=== PATIENT | female | born 1935 | race Caucasian/White ===

== ENCOUNTER 2019-02-23 09:55 | Emergency (ER) | payer MEDICARE, MEDICAID ==
[~2019-02-23] VITALS: Ht 157.5 cm; Wt 90.0 kg
[~2019-02-23 09:55] MED LIST: CLON-512 PO; ESCI10TA PO; HYDR-3972 PO; MELO-100 PO; OMEP-50 PO; SYN0.088T PO
[2019-02-23 11:39] LABS: CLARITY,URINE CLEAR (Clear); COLOR,URINE YELLOW (Yellow); GLUCOSE, URINE NEGATIVE (Neg); KETONES,URINE NEGATIVE (Neg); LEUKOCYTE ESTERASE ,URINE NEGATIVE (Neg); NITRITES, URINE NEGATIVE (Neg); OCCULT BLOOD,URINE MODERATE (Neg); PH,URINE 5.5 (4.8-8.0); PROTEIN,URINE NEGATIVE (Neg); UROBILINOGEN,URINE 0.2 E.U/dL (0.2-1.0)
[2019-02-23 11:44] LABS: UA COLLECTION TYPE CLN CATCH MIDSTREAM
[2019-02-23 11:45] LABS: BACTERIA,URINE NONE SEEN /HPF (Neg); MUCUS STRANDS FEW /LPF (Neg); RBC,URINE 0-2 /HPF (0-2); SQUAMOUS EPITHELIAL CELL,UR NONE SEEN /LPF (FEW); STARCH,URINE FEW /HPF (NEGATIVE); WBC,URINE NONE SEEN /HPF (0-4)
[2019-02-23 11:54] LABS: BASOPHILS # (AUTO) 0.1 X10'3 (0-0.2); BASOPHILS % (AUTO) 1.1 % (0-1); EOSINOPHILS # (AUTO) 0.2 X10'3 (0-0.9); EOSINOPHILS % (AUTO) 4.2 % (0-6); LYMPHOCYTES # (AUTO) 1.6 X10'3 (1.1-4.8); LYMPHOCYTES % (AUTO) 31.3 % (21-51); MEAN CORPUSCULAR HGB CONC 34.1 g/dL (33.0-36.5); MEAN CORPUSCULAR VOLUME 93.7 FL (78-98); MEAN PLATELET VOLUME 8.2 FL (7.4-10.4); MONOCYTES # (AUTO) 0.8 X10'3 (0-0.9); MONOCYTES % (AUTO) 15.2 % (2-12); NEUTROPHILS # (AUTO) 2.5 X10'3 (1.8-7.7); NEUTROPHILS % (AUTO) 48.2 % (42-75); PLATELET COUNT 208 X10'3 (140-440); RED BLOOD COUNT 4.06 X10'6 (4.20-5.60); RED CELL DISTRIBUTION WIDTH 14.3 % (11.5-14.5); WHITE BLOOD COUNT 5.2 X10'3 (4.5-11.0)
[2019-02-23 12:21] LABS: ALANINE AMINOTRANSFERASE 14 U/L (12-78); ALBUMIN 3.8 G/DL (3.4-5.0); ALKALINE PHOSPHATASE 102 IU/L (46-116); ANION GAP 6 (8-16); ASPARTATE AMINO TRANSFERASE 20 U/L (10-37); BILIRUBIN,TOTAL 0.3 MG/DL (0.1-1.0); BLOOD UREA NITROGEN 15 MG/DL (7-18); BUN/CREATININE RATIO 12.2 (6.6-38.0); CALCIUM 8.7 MG/DL (8.5-10.1); CHLORIDE 107 MMOL/L (99-107); CREATININE 1.23 MG/DL (0.40-0.90); GLUCOSE 92 MG/DL (70-104); POTASSIUM 4.4 MMOL/L (3.5-5.1); SODIUM 142 MMOL/L (135-145); TOTAL PROTEIN 7.5 G/DL (6.4-8.2); eGFR 42 ML/MIN
[2019-02-23] MEDS ORDERED: CEPH500C5 PO (12:45)
[2019-02-23 12:56] VITALS: BP 161/79
== END 2019-02-23 13:00 | disposition home or self-care (01) ==
LOC: ER 09:55
DX: N81.0 Urethrocele (principal); R19.7 Diarrhea, unspecified; Z88.8 Allergy status to other drugs, medicaments and biological substances; Z88.2 Allergy status to sulfonamides; Z79.2 Long term (current) use of antibiotics; Z79.899 Other long term (current) drug therapy; Z85.3 Personal history of malignant neoplasm of breast; Z90.49 Acquired absence of other specified parts of digestive tract
CPT/HCPCS: 80053; 81001; 85025; 99284

== ENCOUNTER 2021-06-08 10:25 | Emergency (ER) | payer MEDICARE, MEDICAID ==
[~2021-06-08] VITALS: Ht 157.5 cm; Wt 62.7 kg
[~2021-06-08 10:25] MED LIST changes: +BUTA1TAB54 PO; +CLON-368 PO; -CLON-512 PO; -ESCI10TA PO; +FEXO-310 PO; +LEVO100T9 PO; -MELO-100 PO; +MELO-102 PO; -OMEP-50 PO; +SERT-434 PO; -SYN0.088T PO
[2021-06-08 11:58] LABS: CLARITY,URINE CLEAR (Clear); COLOR,URINE YELLOW (Yellow); GLUCOSE, URINE NEGATIVE (Neg); KETONES,URINE NEGATIVE (Neg); LEUKOCYTE ESTERASE ,URINE NEGATIVE (Neg); NITRITES, URINE NEGATIVE (Neg); OCCULT BLOOD,URINE NEGATIVE (Neg); PH,URINE 6.5 (4.8-8.0); PROTEIN,URINE NEGATIVE (Neg); UROBILINOGEN,URINE 0.2 E.U/dL (0.2-1.0)
[2021-06-08] MEDS ORDERED: HYDROcodone/acetaminophen 5mg/325mg tablet PO ONE (12:05)
[2021-06-08 12:12] LABS: UA COLLECTION TYPE OTHER
[2021-06-08 13:12] VITALS: BP 161/65
--- NOTE | 2021-06-08 13:16 | NUR ---
MARI HERNANDEZ PHONE NUMBER [phone]
== END 2021-06-08 13:17 | disposition home or self-care (01) ==
LOC: ER 10:25
DX: R07.89 Other chest pain (principal); R42 Dizziness and giddiness; J43.9 Emphysema, unspecified; E03.9 Hypothyroidism, unspecified; F17.200 Nicotine dependence, unspecified, uncomplicated; Z86.711 Personal history of pulmonary embolism; Z85.3 Personal history of malignant neoplasm of breast; Z90.49 Acquired absence of other specified parts of digestive tract; Z88.2 Allergy status to sulfonamides; Z88.5 Allergy status to narcotic agent; Z88.8 Allergy status to other drugs, medicaments and biological substances; Z79.899 Other long term (current) drug therapy; W19.XXXA Unspecified fall, initial encounter; Y93.89 Activity, other specified; Y92.89 Other specified places as the place of occurrence of the external cause; Y99.8 Other external cause status
CPT/HCPCS: 71101; 81003; 99284

== ENCOUNTER 2021-06-21 11:06 | Inpatient (IN) | payer MEDICARE, MEDICAID ==
[~2021-06-21] VITALS: Ht 157.5 cm; Wt 61.4 kg
[2021-06-21 12:32] LABS: BASOPHILS # (AUTO) 0.1 X10'3 (0-0.2); BASOPHILS % (AUTO) 1.6 % (0-1); EOSINOPHILS # (AUTO) 0.4 X10'3 (0-0.9); EOSINOPHILS % (AUTO) 6.5 % (0-6); HEMATOCRIT 37.5 % (35.0-45.0); HEMOGLOBIN 12.3 g/dl (12.0-16.0); LYMPHOCYTES # (AUTO) 1.6 X10'3 (1.1-4.8); LYMPHOCYTES % (AUTO) 25.8 % (21-51); MEAN CORPUSCULAR HEMOGLOBIN 30.5 PG (27.0-31.0); MEAN CORPUSCULAR HGB CONC 32.9 g/dL (33.0-36.5); MEAN CORPUSCULAR VOLUME 92.7 FL (78-98); MEAN PLATELET VOLUME 7.7 FL (7.4-10.4); MONOCYTES # (AUTO) 0.8 X10'3 (0-0.9); MONOCYTES % (AUTO) 13.5 % (2-12); NEUTROPHILS # (AUTO) 3.3 X10'3 (1.8-7.7); NEUTROPHILS % (AUTO) 52.6 % (42-75); PLATELET COUNT 277 X10'3 (140-440); RED BLOOD COUNT 4.05 X10'6 (4.20-5.60); RED CELL DISTRIBUTION WIDTH 15.3 % (11.5-14.5); WHITE BLOOD COUNT 6.3 X10'3 (4.5-11.0)
[2021-06-21 12:44] LABS: ALANINE AMINOTRANSFERASE 6 U/L (12-78); ALBUMIN 3.7 G/DL (3.4-5.0); ALBUMIN/GLOBULIN RATIO 0.9 (1.1-1.5); ALKALINE PHOSPHATASE 116 IU/L (46-116); ANION GAP 7 (8-16); ASPARTATE AMINO TRANSFERASE 19 U/L (10-37); BILIRUBIN,TOTAL 0.5 MG/DL (0.1-1.0); BLOOD UREA NITROGEN 18 MG/DL (7-18); BUN/CREATININE RATIO 14.9 (6.6-38.0); CALCIUM 8.6 MG/DL (8.5-10.1); CHLORIDE 104 MMOL/L (99-107); CREATININE 1.21 MG/DL (0.40-0.90); GLUCOSE 92 MG/DL (70-104); POTASSIUM 4.2 MMOL/L (3.5-5.1); SODIUM 137 MMOL/L (135-145); TOTAL PROTEIN 7.8 G/DL (6.4-8.2); eGFR 42 ML/MIN
[2021-06-21] MEDS ORDERED: normal saline 1000ML IV soln IVB ONE (13:00)
[2021-06-21 13:27] LABS: CLARITY,URINE CLEAR (Clear); COLOR,URINE YELLOW (Yellow); GLUCOSE, URINE NEGATIVE (Neg); KETONES,URINE NEGATIVE (Neg); LEUKOCYTE ESTERASE ,URINE NEGATIVE (Neg); NITRITES, URINE NEGATIVE (Neg); OCCULT BLOOD,URINE TRACE-INTACT (Neg); PROTEIN,URINE NEGATIVE (Neg); UROBILINOGEN,URINE 0.2 E.U/dL (0.2-1.0)
[2021-06-21 13:31] LABS: UA COLLECTION TYPE NON-SPECIFIED
[2021-06-21 13:35] LABS: BACTERIA,URINE NONE SEEN /HPF (Neg); MUCUS STRANDS NONE SEEN /LPF (Neg); RBC,URINE NONE SEEN /HPF (0-2); SQUAMOUS EPITHELIAL CELL,UR FEW /LPF (FEW); WBC,URINE 0-4 /HPF (0-4)
--- NOTE | 2021-06-21 14:17 | NUR ---
Renea patel in [facility] - 06/21/21 at 1418 by MARZENA Patient given water and helped to sitting position.
[2021-06-21] MEDS ORDERED: LEVO75TA PO (15:14)
[2021-06-21] MEDS ORDERED: MULT-1074 PO (15:20)
[2021-06-21] MEDS ORDERED: CALC500T63 PO (15:20)
[2021-06-21] MEDS ORDERED: acetaminophen 325mg tablet PO PRN (15:45)
[2021-06-21] MEDS ORDERED: magnesium Cl slow-release 64mg tablet PO PRN (15:45)
[2021-06-21] MEDS ORDERED: ondansetron/PF 4mg/2ml inj IV PRN (15:45)
[2021-06-21] MEDS ORDERED: mag hydrox/Alum hydrox/simeth 30ml oral suspension PO PRN (15:45)
[2021-06-21] MEDS ORDERED: magnesium hydroxide 30ml (MOM) UD suspension PO PRN (15:45)
[2021-06-21] MEDS ORDERED: POTASSIUM BICARB 20meq eff tab 20 MEQ TABLET.EFF PO PRN ×2 (15:45)
[2021-06-21] MEDS ORDERED: magnesium 4gm in 100ml NS 100 ML IV PRN (15:45)
[2021-06-21] MEDS ORDERED: potassium Cl 40MEQ/1/2NS 520ml 520 ML IV PRN (15:45)
[2021-06-21] MEDS ORDERED: ondansetron 4mg rapidly disintigrating tab PO PRN (15:45)
[2021-06-21] MEDS ORDERED: acetaminophen 650mg rectal suppository RC PRN (15:45)
[2021-06-21] MEDS ORDERED: magnesium 2GM in 50ml NS 50 ML IV PRN (15:45)
[2021-06-21] MEDS: normal saline 1000ml 1,000 ML IV SCH (16:25)
[2021-06-21] MEDS: acetaminophen 325mg tablet PO PRN (16:29)
[2021-06-21 17:11] LABS: MAGNESIUM 1.7 MG/DL (1.5-2.4); POTASSIUM 4.1 MMOL/L (3.5-5.1)
--- NOTE | 2021-06-21 18:25 | NUR ---
ASSUMED CARE OF PT. PT SITTING UP ON BED WITH LUNCH TRAY ACROSS HER. HOSPITALIST IS TALKING TO HER AT BEDSIDE.
--- NOTE | 2021-06-21 19:01 | NUR ---
ATTEMPTED TO GIVE REPORT. RN UNABLE TO ACCEPT REPORT AT THIS TIME. SHE WILL CALL BACK IN 10 MINUTES.
[2021-06-21 19:30] VITALS: BP 124/70
[2021-06-21] MEDS: K and/or MAG REPLACEMENT MC SCH (20:00)
[2021-06-21] MEDS: docusate sod 100mg capsule PO SCH (20:00)
[2021-06-21 22:00] VITALS: BP 157/62
[2021-06-21] MEDS: clonazePAM 0.5mg tablet PO PRN (22:00)
[2021-06-22] MEDS: HYDROcodone/acetaminophen 5mg/325mg tablet PO PRN (00:42)
[2021-06-22] MEDS: normal saline 1000ml 1,000 ML IV SCH ×2 (00:53→21:37)
[2021-06-22 06:30] VITALS: BP 157/69
--- NOTE | 2021-06-22 06:31 | NUR ---
Received report from Agnes, RN
[2021-06-22 06:36] LABS: BASOPHILS # (AUTO) 0.1 X10'3 (0-0.2); BASOPHILS % (AUTO) 1.2 % (0-1); EOSINOPHILS # (AUTO) 0.5 X10'3 (0-0.9); EOSINOPHILS % (AUTO) 7.9 % (0-6); HEMATOCRIT 32.8 % (35.0-45.0); HEMOGLOBIN 10.9 g/dl (12.0-16.0); LYMPHOCYTES # (AUTO) 2.1 X10'3 (1.1-4.8); LYMPHOCYTES % (AUTO) 34.1 % (21-51); MEAN CORPUSCULAR HEMOGLOBIN 31.2 PG (27.0-31.0); MEAN CORPUSCULAR HGB CONC 33.3 g/dL (33.0-36.5); MEAN CORPUSCULAR VOLUME 93.7 FL (78-98); MEAN PLATELET VOLUME 7.8 FL (7.4-10.4); MONOCYTES # (AUTO) 1.1 X10'3 (0-0.9); MONOCYTES % (AUTO) 17.5 % (2-12); NEUTROPHILS # (AUTO) 2.5 X10'3 (1.8-7.7); NEUTROPHILS % (AUTO) 39.3 % (42-75); PLATELET COUNT 241 X10'3 (140-440); RED CELL DISTRIBUTION WIDTH 14.9 % (11.5-14.5); WHITE BLOOD COUNT 6.3 X10'3 (4.5-11.0)
[2021-06-22 07:07] LABS: ALANINE AMINOTRANSFERASE 8 U/L (12-78); ALBUMIN 3.1 G/DL (3.4-5.0); ALBUMIN/GLOBULIN RATIO 0.9 (1.1-1.5); ALKALINE PHOSPHATASE 92 IU/L (46-116); ANION GAP 7 (8-16); ASPARTATE AMINO TRANSFERASE 14 U/L (10-37); BILIRUBIN,TOTAL 0.4 MG/DL (0.1-1.0); BLOOD UREA NITROGEN 16 MG/DL (7-18); BUN/CREATININE RATIO 14.7 (6.6-38.0); CALCIUM 8.3 MG/DL (8.5-10.1); CHLORIDE 108 MMOL/L (99-107); CREATININE 1.09 MG/DL (0.40-0.90); GLUCOSE 88 MG/DL (70-104); MAGNESIUM 1.8 MG/DL (1.5-2.4); POTASSIUM 3.8 MMOL/L (3.5-5.1); SODIUM 139 MMOL/L (135-145); TOTAL CARBON DIOXIDE 23.8 MMOL/L (24-32); TOTAL PROTEIN 6.6 G/DL (6.4-8.2); eGFR 48 ML/MIN
[2021-06-22] MEDS: K and/or MAG REPLACEMENT MC SCH ×2 (08:00→19:47)
[2021-06-22] MEDS: docusate sod 100mg capsule PO SCH ×2 (08:23→19:54)
[2021-06-22] MEDS: calcium carbonate 500mg tablet PO SCH (08:23)
[2021-06-22] MEDS: levoTHYROXINE 75mcg tablet PO SCH (08:24)
[2021-06-22] MEDS: sertraline 50mg tablet PO SCH (08:24)
[2021-06-22] MEDS: enoxaparin 30mg/0.3ml syringe SUBCUT SCH (08:24)
[2021-06-22] MEDS ORDERED: amLODIPine 5mg tablet PO ONE (08:40)
[2021-06-22 09:00] LABS: TOTAL CELLS COUNTED 100
--- NOTE | 2021-06-22 09:00 | NUR ---
Malnutrition consult: Pt admitted w/ BLE weakness w/ hx of recent falls per EMR. Pt reports 2-13lb wt loss per MST. Current wt not scaled though consistent w/ wts from previous admits. Pt appears appropriate for age, no signs of muscle or fat wasting. Pt states that she was not eating too great at her previous facility because the food was not good, though she likes the food here and was able to eat breakfast this morning. Noted w/ BLE 1+ edema. At this time, pt does not meet minimum criteria for malnutrition. Addendum: 06/22/21 at [address] Amended: Links added.
[2021-06-22 09:01] LABS: PLATELET ESTIMATE NORMAL
[2021-06-22 09:02] LABS: BURR CELLS FEW; ELLIPTOCYTES FEW
[2021-06-22 10:08] VITALS: BP 152/64
[2021-06-22] MEDS: clonazePAM 0.5mg tablet PO PRN ×2 (10:30→23:25)
--- NOTE | 2021-06-22 10:56 | NUR ---
patient to MRI
--- NOTE | 2021-06-22 13:27 | NUR ---
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 judit [id number]
[2021-06-22] MEDS: DEXAMETHASONE 6 MG TABLET PO SCH (16:14)
[2021-06-22] MEDS ORDERED: iohexol 300mg/ml 100ml inj. ONE (16:59)
--- NOTE | 2021-06-22 17:38 | NUR ---
PAGER ID: [phone] MESSAGE: [id number], Lily systolic blood pressure is 181, no PRNs. Thanks judit [id number]
[2021-06-22] MEDS ORDERED: hydrALAZINE 20mg/ml inj. IV PRN (17:40)
--- NOTE | 2021-06-22 17:58 | NUR ---
medicated patient with hydralazine 10mg iv for systolic blood pressure of 181.
[2021-06-22 18:00] VITALS: BP 181/79
--- NOTE | 2021-06-22 18:13 | NUR ---
Gave report to NERISSA Foss
--- NOTE | 2021-06-22 18:37 | NUR ---
Patient in room [facility]TH[facility] 4012. I have received report from Kaylee MULTANI and had the opportunity to ask questions and assume patient care.
[2021-06-22 19:10] VITALS: BP 144/84
[2021-06-22] MEDS: HYDROcodone/acetaminophen 10/325mg tab PO PRN (19:54)
[2021-06-22 22:00] VITALS: BP 146/69
[2021-06-23 02:00] VITALS: BP 139/69
--- NOTE | 2021-06-23 06:09 | NUR ---
Problems reprioritized. Patient report given, questions answered & plan of care reviewed with Kaylee MULTANI.
[2021-06-23 06:10] LABS: BASOPHILS % (AUTO) 0.5 % (0-1); EOSINOPHILS % (AUTO) 0 % (0-6); HEMATOCRIT 34.9 % (35.0-45.0); HEMOGLOBIN 11.4 g/dl (12.0-16.0); LYMPHOCYTES # (AUTO) 0.8 X10'3 (1.1-4.8); LYMPHOCYTES % (AUTO) 16.4 % (21-51); MEAN CORPUSCULAR HEMOGLOBIN 30.3 PG (27.0-31.0); MEAN CORPUSCULAR HGB CONC 32.8 g/dL (33.0-36.5); MEAN CORPUSCULAR VOLUME 92.4 FL (78-98); MEAN PLATELET VOLUME 7.6 FL (7.4-10.4); MONOCYTES # (AUTO) 0.6 X10'3 (0-0.9); MONOCYTES % (AUTO) 10.9 % (2-12); NEUTROPHILS # (AUTO) 3.7 X10'3 (1.8-7.7); NEUTROPHILS % (AUTO) 72.2 % (42-75); PLATELET COUNT 259 X10'3 (140-440); RED BLOOD COUNT 3.77 X10'6 (4.20-5.60); RED CELL DISTRIBUTION WIDTH 15.1 % (11.5-14.5); WHITE BLOOD COUNT 5.2 X10'3 (4.5-11.0)
[2021-06-23 06:16] VITALS: BP_SYST 128; BP_SYST 146; BP_DIAS 62; BP_DIAS 74
[2021-06-23 06:22] LABS: ALANINE AMINOTRANSFERASE 6 U/L (12-78); ALBUMIN 3.2 G/DL (3.4-5.0); ALBUMIN/GLOBULIN RATIO 0.8 (1.1-1.5); ALKALINE PHOSPHATASE 104 IU/L (46-116); ANION GAP 8 (8-16); ASPARTATE AMINO TRANSFERASE 14 U/L (10-37); BILIRUBIN,TOTAL 0.4 MG/DL (0.1-1.0); BLOOD UREA NITROGEN 18 MG/DL (7-18); BUN/CREATININE RATIO 18.6 (6.6-38.0); CALCIUM 8.5 MG/DL (8.5-10.1); CHLORIDE 107 MMOL/L (99-107); CREATININE 0.97 MG/DL (0.40-0.90); GLUCOSE 119 MG/DL (70-104); MAGNESIUM 1.5 MG/DL (1.5-2.4); SODIUM 139 MMOL/L (135-145); TOTAL CARBON DIOXIDE 23.8 MMOL/L (24-32); TOTAL PROTEIN 7.1 G/DL (6.4-8.2); eGFR 54 ML/MIN
[2021-06-23] MEDS: normal saline 1000ml 1,000 ML IV SCH (07:37)
[2021-06-23] MEDS: docusate sod 100mg capsule PO SCH ×2 (08:00→20:12)
[2021-06-23] MEDS: K and/or MAG REPLACEMENT MC SCH ×2 (08:00→20:00)
[2021-06-23] MEDS ORDERED: amLODIPine 5mg tablet PO SCH (08:00)
[2021-06-23] MEDS: sertraline 50mg tablet PO SCH (08:16)
[2021-06-23] MEDS: DEXAMETHASONE 6 MG TABLET PO SCH (08:16)
[2021-06-23] MEDS: levoTHYROXINE 75mcg tablet PO SCH (08:16)
[2021-06-23] MEDS: amLODIPine 5mg tablet PO SCH (08:17)
[2021-06-23] MEDS: enoxaparin 30mg/0.3ml syringe SUBCUT SCH (08:17)
[2021-06-23] MEDS: calcium carbonate 500mg tablet PO SCH (08:17)
[2021-06-23] MEDS: lisinopril 20mg tablet PO SCH ×2 (08:17→09:33)
[2021-06-23 09:22] VITALS: BP 139/54
[2021-06-23] MEDS: acetaminophen 325mg tablet PO PRN ×2 (09:34→15:52)
[2021-06-23 14:50] VITALS: BP 138/56
[2021-06-23 18:00] VITALS: BP 143/59
--- NOTE | 2021-06-23 18:07 | NUR ---
report given to NERISSA pool
[2021-06-23] MEDS: psyllium seed 3.4 gm packet PO SCH (20:12)
[2021-06-23] MEDS: HYDROcodone/acetaminophen 10/325mg tab PO PRN (20:17)
[2021-06-23] MEDS: clonazePAM 0.5mg tablet PO PRN (21:25)
[2021-06-23 22:00] VITALS: BP 117/52
[2021-06-24 02:00] VITALS: BP 149/62
--- NOTE | 2021-06-24 04:00 | NUR ---
noted pt's wick didn't work. incont urine. changed entire bed, reset wick. encouraged pt to get out of bed to void instead of using the wick. antciapte discharge to rehab
[2021-06-24 06:00] VITALS: BP 122/51
--- NOTE | 2021-06-24 06:42 | NUR ---
Patient in room [facility]TH[facility] 4012. I have received report from NERISSA Mojica and had the opportunity to ask questions and assume patient care.
[2021-06-24 06:58] LABS: BASOPHILS % (AUTO) 0.4 % (0-1); EOSINOPHILS # (AUTO) 0.2 X10'3 (0-0.9); EOSINOPHILS % (AUTO) 1.7 % (0-6); HEMATOCRIT 32.6 % (35.0-45.0); HEMOGLOBIN 10.8 g/dl (12.0-16.0); LYMPHOCYTES # (AUTO) 2.3 X10'3 (1.1-4.8); LYMPHOCYTES % (AUTO) 25.7 % (21-51); MEAN CORPUSCULAR HGB CONC 33.1 g/dL (33.0-36.5); MEAN CORPUSCULAR VOLUME 93.5 FL (78-98); MEAN PLATELET VOLUME 7.7 FL (7.4-10.4); MONOCYTES # (AUTO) 1.7 X10'3 (0-0.9); MONOCYTES % (AUTO) 18.8 % (2-12); NEUTROPHILS # (AUTO) 4.7 X10'3 (1.8-7.7); NEUTROPHILS % (AUTO) 53.4 % (42-75); PLATELET COUNT 269 X10'3 (140-440); RED BLOOD COUNT 3.48 X10'6 (4.20-5.60); RED CELL DISTRIBUTION WIDTH 15.2 % (11.5-14.5); WHITE BLOOD COUNT 8.9 X10'3 (4.5-11.0)
[2021-06-24] MEDS: K and/or MAG REPLACEMENT MC SCH ×2 (08:00→18:41)
[2021-06-24 08:08] LABS: ALBUMIN 3.2 G/DL (3.4-5.0); ALBUMIN/GLOBULIN RATIO 0.9 (1.1-1.5); ALKALINE PHOSPHATASE 93 IU/L (46-116); ANION GAP 9 (8-16); ASPARTATE AMINO TRANSFERASE 13 U/L (10-37); BILIRUBIN,TOTAL 0.3 MG/DL (0.1-1.0); BLOOD UREA NITROGEN 21 MG/DL (7-18); BUN/CREATININE RATIO 17.1 (6.6-38.0); CALCIUM 8.2 MG/DL (8.5-10.1); CHLORIDE 108 MMOL/L (99-107); CREATININE 1.23 MG/DL (0.40-0.90); GLUCOSE 91 MG/DL (70-104); MAGNESIUM 1.8 MG/DL (1.5-2.4); POTASSIUM 3.7 MMOL/L (3.5-5.1); SODIUM 142 MMOL/L (135-145); TOTAL CARBON DIOXIDE 24.6 MMOL/L (24-32); TOTAL PROTEIN 6.8 G/DL (6.4-8.2); eGFR 41 ML/MIN
[2021-06-24 08:11] LABS: ALANINE AMINOTRANSFERASE < 6 U/L (12-78)
[2021-06-24] MEDS: clonazePAM 0.5mg tablet PO PRN (09:02)
[2021-06-24] MEDS: lisinopril 20mg tablet PO SCH (09:03)
[2021-06-24] MEDS: levoTHYROXINE 75mcg tablet PO SCH (09:03)
[2021-06-24] MEDS: acetaminophen 325mg tablet PO PRN (09:03)
[2021-06-24] MEDS: calcium carbonate 500mg tablet PO SCH (09:04)
[2021-06-24] MEDS: amLODIPine 5mg tablet PO SCH (09:04)
[2021-06-24] MEDS: sertraline 50mg tablet PO SCH (09:04)
[2021-06-24] MEDS: DEXAMETHASONE 6 MG TABLET PO SCH (09:05)
[2021-06-24] MEDS: docusate sod 100mg capsule PO SCH ×2 (09:05→19:46)
[2021-06-24 10:00] VITALS: BP 116/50
[2021-06-24 14:00] VITALS: BP 116/53
--- NOTE | 2021-06-24 14:01 | NUR ---
PRESSURE ULCER EDUCATION: DEFINITION: A pressure ulcer is an area of skin that breaks down when you stay in one position too long. The constant pressure against the skin reduces the blood flow to that area and the affected tissue dies. CAUSES: "Being bedridden or in a wheelchair "Fragile skin "Having a chronic condition, such as diabetes or vascular disease "Inability to move certain parts of your body without assistance "Older age "Incontinence of urine or stool SYMPTOMS: "A reddened area that DOES NOT turn white when pressed on - this can be the beginning of a pressure ulcer "A blister, deep sore or a crater - these can be advanced pressure ulcers FIRST AID: "Relieve the pressure on this area "Keep the area clean and dry "Call your primary doctor if you see any of the above symptoms "DO NOT massage the area "DO NOT use a donut shaped or ring shaped pillow- these actually interfere with the blood flow and cause complications PREVENTION: "Check for pressure ulcers everyday "Change position at least every two hours to relieve pressure "Use items that help relieve pressure- pillows, sheepskin, foam padding, and powders. "Keep skin clean and dry "Eat healthy well balanced meals "Exercise daily IF YOU SEE ANY OF THESE SYMPTOMS WHILE IN THE HOSPITAL - TELL YOUR NURSE IMMEDIATELY. IF YOU SEE ANY OF THESE SYMPTOMS WHILE AT HOME OR HAVE ANY QUESTIONS OR CONCERNS ABOUT PRESSURE ULCERS - CALL YOUR PRIMARY DOCTOR IMMEDIATELY. Addendum: 06/24/21 at 1402 by Charis Trejo LVN Amended: Links added.
[2021-06-24] MEDS: ibuprofen tablet 400 MG TABLET PO PRN (15:07)
[2021-06-24 18:00] VITALS: BP 114/50
--- NOTE | 2021-06-24 18:38 | NUR ---
Problems reprioritized. Patient report given, questions answered & plan of care reviewed with NERISSA Fernando.
[2021-06-24] MEDS: HYDROcodone/acetaminophen 10/325mg tab PO PRN (19:44)
[2021-06-24] MEDS: psyllium seed 3.4 gm packet PO SCH (20:14)
[2021-06-24 22:00] VITALS: BP 112/58
[2021-06-25] MEDS: clonazePAM 0.5mg tablet PO PRN ×3 (03:05→20:57)
[2021-06-25 05:00] VITALS: BP 133/52
[2021-06-25 06:17] LABS: BASOPHILS % (AUTO) 0.4 % (0-1); EOSINOPHILS # (AUTO) 0.1 X10'3 (0-0.9); EOSINOPHILS % (AUTO) 1.2 % (0-6); HEMATOCRIT 34.1 % (35.0-45.0); HEMOGLOBIN 11.2 g/dl (12.0-16.0); LYMPHOCYTES # (AUTO) 2.3 X10'3 (1.1-4.8); LYMPHOCYTES % (AUTO) 25.8 % (21-51); MEAN CORPUSCULAR HEMOGLOBIN 30.7 PG (27.0-31.0); MEAN CORPUSCULAR HGB CONC 32.9 g/dL (33.0-36.5); MEAN CORPUSCULAR VOLUME 93.4 FL (78-98); MEAN PLATELET VOLUME 7.9 FL (7.4-10.4); MONOCYTES # (AUTO) 1.5 X10'3 (0-0.9); MONOCYTES % (AUTO) 17.1 % (2-12); NEUTROPHILS % (AUTO) 55.5 % (42-75); PLATELET COUNT 272 X10'3 (140-440); RED BLOOD COUNT 3.65 X10'6 (4.20-5.60); RED CELL DISTRIBUTION WIDTH 15.2 % (11.5-14.5)
--- NOTE | 2021-06-25 06:22 | NUR ---
Problems reprioritized. Patient report given, questions answered & plan of care reviewed with NERISSA Goodman.
--- NOTE | 2021-06-25 06:32 | NUR ---
Patient in room [facility]TH[facility] 4012. I have received report from NERISSA Fernando and had the opportunity to ask questions and assume patient care.
[2021-06-25 06:39] LABS: ALANINE AMINOTRANSFERASE 7 U/L (12-78); ALBUMIN 3.2 G/DL (3.4-5.0); ALBUMIN/GLOBULIN RATIO 0.9 (1.1-1.5); ALKALINE PHOSPHATASE 89 IU/L (46-116); ANION GAP 8 (8-16); ASPARTATE AMINO TRANSFERASE 11 U/L (10-37); BILIRUBIN,TOTAL 0.4 MG/DL (0.1-1.0); BLOOD UREA NITROGEN 24 MG/DL (7-18); BUN/CREATININE RATIO 20.3 (6.6-38.0); CALCIUM 8.2 MG/DL (8.5-10.1); CHLORIDE 108 MMOL/L (99-107); CREATININE 1.18 MG/DL (0.40-0.90); GLUCOSE 98 MG/DL (70-104); MAGNESIUM 1.8 MG/DL (1.5-2.4); POTASSIUM 3.7 MMOL/L (3.5-5.1); SODIUM 141 MMOL/L (135-145); TOTAL CARBON DIOXIDE 25.3 MMOL/L (24-32); TOTAL PROTEIN 6.7 G/DL (6.4-8.2); eGFR 43 ML/MIN
[2021-06-25] MEDS: K and/or MAG REPLACEMENT MC SCH ×2 (08:00→20:00)
[2021-06-25] MEDS: acetaminophen 325mg tablet PO PRN ×3 (08:48→23:04)
[2021-06-25] MEDS: amLODIPine 5mg tablet PO SCH (08:48)
[2021-06-25] MEDS: levoTHYROXINE 75mcg tablet PO SCH (08:48)
[2021-06-25] MEDS: dexamethasone 4mg tablet PO SCH (08:49)
[2021-06-25] MEDS: sertraline 50mg tablet PO SCH (08:49)
[2021-06-25] MEDS: docusate sod 100mg capsule PO SCH ×2 (08:49→20:09)
[2021-06-25] MEDS: lisinopril 20mg tablet PO SCH (08:49)
[2021-06-25] MEDS: calcium carbonate 500mg tablet PO SCH (08:49)
[2021-06-25 10:00] VITALS: BP 113/46
--- NOTE | 2021-06-25 11:14 | NUR ---
Initial: Pt admit for severe spinal canal stenosis and DANII with CKD. Pt on a regular diet with fluctuating PO intake that averages 55% meeting 97% minimum estimated energy needs and 100% minimum estimated protein needs. D/w dietary to send shakes WS for additional nutrition. LBM 5/. Skin intact per wound care note. Will continue to follow and monitor need for further nutrition intervention. Recommendations: 1) Continue regular diet 2) Shake WS; monitor need for ONS 3) Routine bowel care 4) Scaled weight this admit; subsequent weekly scaled weights Addendum: 06/25/21 at [address] Amended: Links added.
[2021-06-25 14:00] VITALS: BP 127/51
[2021-06-25 18:00] VITALS: BP 123/58
--- NOTE | 2021-06-25 18:40 | NUR ---
Problems reprioritized. Patient report given, questions answered & plan of care reviewed with NERISSA Jay.
[2021-06-25] MEDS: psyllium seed 3.4 gm packet PO SCH (20:09)
[2021-06-25 22:00] VITALS: BP 132/59
[2021-06-26] MEDS: HYDROcodone/acetaminophen 5mg/325mg tablet PO PRN (00:46)
[2021-06-26 05:00] VITALS: BP 136/60
[2021-06-26 06:47] LABS: BASOPHILS % (AUTO) 0.3 % (0-1); EOSINOPHILS # (AUTO) 0.2 X10'3 (0-0.9); EOSINOPHILS % (AUTO) 1.9 % (0-6); HEMATOCRIT 36.4 % (35.0-45.0); HEMOGLOBIN 11.8 g/dl (12.0-16.0); LYMPHOCYTES # (AUTO) 2.9 X10'3 (1.1-4.8); LYMPHOCYTES % (AUTO) 30.4 % (21-51); MEAN CORPUSCULAR HEMOGLOBIN 30.5 PG (27.0-31.0); MEAN CORPUSCULAR HGB CONC 32.5 g/dL (33.0-36.5); MEAN CORPUSCULAR VOLUME 93.9 FL (78-98); MEAN PLATELET VOLUME 7.9 FL (7.4-10.4); MONOCYTES # (AUTO) 1.7 X10'3 (0-0.9); MONOCYTES % (AUTO) 17.3 % (2-12); NEUTROPHILS # (AUTO) 4.8 X10'3 (1.8-7.7); NEUTROPHILS % (AUTO) 50.1 % (42-75); PLATELET COUNT 295 X10'3 (140-440); RED BLOOD COUNT 3.88 X10'6 (4.20-5.60); RED CELL DISTRIBUTION WIDTH 15.4 % (11.5-14.5); WHITE BLOOD COUNT 9.7 X10'3 (4.5-11.0)
[2021-06-26 07:10] LABS: ALANINE AMINOTRANSFERASE 12 U/L (12-78); ALBUMIN 3.3 G/DL (3.4-5.0); ALBUMIN/GLOBULIN RATIO 0.8 (1.1-1.5); ALKALINE PHOSPHATASE 104 IU/L (46-116); ANION GAP 9 (8-16); ASPARTATE AMINO TRANSFERASE 16 U/L (10-37); BILIRUBIN,TOTAL 0.3 MG/DL (0.1-1.0); BLOOD UREA NITROGEN 27 MG/DL (7-18); BUN/CREATININE RATIO 23.7 (6.6-38.0); CALCIUM 8.6 MG/DL (8.5-10.1); CHLORIDE 104 MMOL/L (99-107); CREATININE 1.14 MG/DL (0.40-0.90); GLUCOSE 81 MG/DL (70-104); POTASSIUM 3.9 MMOL/L (3.5-5.1); SODIUM 141 MMOL/L (135-145); TOTAL CARBON DIOXIDE 27.8 MMOL/L (24-32); TOTAL PROTEIN 7.2 G/DL (6.4-8.2); eGFR 45 ML/MIN
[2021-06-26] MEDS: K and/or MAG REPLACEMENT MC SCH (07:39)
[2021-06-26] MEDS: amLODIPine 5mg tablet PO SCH (07:45)
[2021-06-26] MEDS: docusate sod 100mg capsule PO SCH (07:45)
[2021-06-26] MEDS: levoTHYROXINE 75mcg tablet PO SCH (07:50)
[2021-06-26] MEDS: calcium carbonate 500mg tablet PO SCH (07:50)
[2021-06-26] MEDS: dexamethasone 4mg tablet PO SCH (07:51)
[2021-06-26] MEDS: lisinopril 20mg tablet PO SCH (07:51)
[2021-06-26] MEDS: sertraline 50mg tablet PO SCH (07:52)
[2021-06-26] MEDS: clonazePAM 0.5mg tablet PO PRN (07:55)
[2021-06-26 10:24] VITALS: BP 119/50
[2021-06-26] MEDS: ibuprofen tablet 400 MG TABLET PO PRN (12:08)
--- NOTE | 2021-06-26 13:08 | NUR ---
Report called to Ibrahima Mccarthy at [facility]. All questions answered. Awaiting 1330 chart picker for transport.
--- NOTE | 2021-06-26 13:44 | NUR ---
Patient discharged to [facility] via transport company. All belongings taken from room. IV taken out, no tele. No meds in pharmacy. Family aware of transfer. Patient alert, oriented and appropriate.
== END 2021-06-26 13:40 | DRG 551 ==
LOC: ER 11:07 → ED HOLD 15:49 → ORTHO 4S 19:25
PROVIDERS: ADMIT Family Medicine; ATTEND Family Medicine
PROC: BW241ZZ Computerized Tomography (CT Scan) of Chest and Abdomen using Low Osmolar Contrast (ICD-10-PCS; principal; 2021-06-22)
DX: M48.061 Spinal stenosis, lumbar region without neurogenic claudication (principal); N17.0 Acute kidney failure with tubular necrosis; F41.0 Panic disorder [episodic paroxysmal anxiety]; F40.240 Claustrophobia; J43.9 Emphysema, unspecified; F41.1 Generalized anxiety disorder; Z60.2 Problems related to living alone; R29.6 Repeated falls; R62.7 Adult failure to thrive; N18.9 Chronic kidney disease, unspecified; Z20.822 Contact with and (suspected) exposure to COVID-19; K21.9 Gastro-esophageal reflux disease without esophagitis; R55 Syncope and collapse; E03.9 Hypothyroidism, unspecified; G90.9 Disorder of the autonomic nervous system, unspecified; I12.9 Hypertensive chronic kidney disease with stage 1 through stage 4 chronic kidney disease, or unspecified chronic kidney disease; I70.0 Atherosclerosis of aorta; Z85.3 Personal history of malignant neoplasm of breast; Z87.891 Personal history of nicotine dependence; Z91.81 History of falling; Z68.24 Body mass index [BMI] 24.0-24.9, adult; Z88.2 Allergy status to sulfonamides; Z88.5 Allergy status to narcotic agent; Z90.49 Acquired absence of other specified parts of digestive tract
CPT/HCPCS: 36415; 70450; 70551; 71045; 71260; 72148; 80053; 81001; 83735; 84132; 84443; 84484; 85007; 85025; 87081; 93005; 96360; 97110; 97116; 97161; 97530; 99285; G0378; J0360; J1650; J7030; J8540; Q9967

== ENCOUNTER 2023-05-28 20:05 | Inpatient (IN) | payer MEDICARE, MEDICAID ==
[~2023-05-28] VITALS: Ht 165.1 cm; Wt 66.3 kg
[~2023-05-28 20:05] MED LIST changes: -CLON-368 PO; +CLON0.5T4 PO; -FEXO-310 PO; -LEVO100T9 PO; +LEVO75TA7 PO; +VANCOMYCIN 750MG IV in NS 250 ML IV ONE; +vancomycin/NS 1 GM ADD-VANTAGE 250 ML IV ONE
[2023-05-28 20:44] LABS: BASOPHILS % (AUTO) 0.2 % (0-1); EOSINOPHILS # (AUTO) 0.1 X10'3 (0-0.9); EOSINOPHILS % (AUTO) 0.6 % (0-6); HEMOGLOBIN 13.5 g/dl (12.0-16.0); LYMPHOCYTES # (AUTO) 1.3 X10'3 (1.1-4.8); LYMPHOCYTES % (AUTO) 11.6 % (21-51); MEAN CORPUSCULAR HEMOGLOBIN 27.9 PG (27.0-31.0); MEAN CORPUSCULAR HGB CONC 32.1 g/dL (33.0-36.5); MEAN CORPUSCULAR VOLUME 87.1 FL (78-98); MEAN PLATELET VOLUME 7.6 FL (7.4-10.4); MONOCYTES # (AUTO) 0.9 X10'3 (0-0.9); MONOCYTES % (AUTO) 8.4 % (2-12); NEUTROPHILS # (AUTO) 8.9 X10'3 (1.8-7.7); NEUTROPHILS % (AUTO) 79.2 % (42-75); PLATELET COUNT 266 X10'3 (140-440); RED BLOOD COUNT 4.82 X10'6 (4.20-5.60); RED CELL DISTRIBUTION WIDTH 20.1 % (11.5-14.5); WHITE BLOOD COUNT 11.2 X10'3 (4.5-11.0)
[2023-05-28 20:58] LABS: ALANINE AMINOTRANSFERASE 14 U/L (12-78); ALBUMIN 2.1 G/DL (3.4-5.0); ALBUMIN/GLOBULIN RATIO 0.5 (1.1-1.5); ALKALINE PHOSPHATASE 65 IU/L (46-116); ANION GAP 9 (8-16); ASPARTATE AMINO TRANSFERASE 17 U/L (10-37); BILIRUBIN,TOTAL 0.3 MG/DL (0.1-1.0); BLOOD UREA NITROGEN 30 MG/DL (7-18); BUN/CREATININE RATIO 25.4 (10.0-20.0); CHLORIDE 107 MMOL/L (99-107); CREATININE 1.18 MG/DL (0.40-0.90); GLUCOSE 95 MG/DL (70-104); POTASSIUM 3.3 MMOL/L (3.5-5.1); SODIUM 140 MMOL/L (135-145); TOTAL CARBON DIOXIDE 24.2 MMOL/L (24-32); TOTAL PROTEIN 6.7 G/DL (6.4-8.2); eCRCL 30 ML/MIN; eGFR 43 ML/MIN
[2023-05-28 21:04] LABS: PRO BRAIN NATRIURETIC PEPTIDE 2174 PG/ML (0-450)
[2023-05-28] MEDS: LidoCAINE 2% Topical Jelly 11mL syringe (UROJET) TOP ONE (21:10)
[2023-05-28 21:52] LABS: ABG BASE EXCESS 2.1 mmol/L (-2.0-2.0); ABG HCO3 25.4 mmol/L (22.0-26.0); ABG OXYGEN SATURATION 90.8 % (94-97); ABG PCO2 (T) 35.6 mmHg (32.0-45.0); ABG PH (T) 7.472 (7.350-7.450); ABG PO2 (T) 58.5 mmHg (75.0-100.0); ALLEN'S TEST POSITIVE; FCOHb 0.1 % (0.0-3.9); FHHb 9.2 % (0.0-5.0); FLOW 2 L/min; FMetHb 0.3 % (0.0-1.5); FO2Hb 90.4 % (94-97); MODE NASAL CANNULA; TOTAL HEMOGLOBIN 14.5 G/dl (12.0-16.0)
[2023-05-28] MEDS: acetaminophen 325mg tablet PO ONE (21:59)
[2023-05-28] MEDS: potassium Cl 20 mEq SR tablet PO STA (22:00)
[2023-05-28 22:01] VITALS: PULSE 125; RESP 27; O2SAT 97
[2023-05-28 22:01] LABS: ANISOCYTOSIS 3+; ELLIPTOCYTES FEW; PLATELET ESTIMATE NORMAL
[2023-05-28] MEDS ORDERED: vancomycin/NS 1 GM ADD-VANTAGE 250 ML IV ONE ×2 (22:10→23:50)
[2023-05-28] MEDS: diltiazem 5mg/ml 5ml inj. IV ONE (22:32)
[2023-05-28] MEDS: albumin (human) 25% 100 ML IV solution IV ONE (22:39)
[2023-05-28] MEDS: dexamethasone sod phosphate 10mg/ml inj IV STA (22:44)
[2023-05-28] MEDS: pantoprazole 40 MG vial IV STA (22:44)
[2023-05-28] MEDS: piperacillin/tazo 3.375gm/50ml 50 ML IV STA (22:45)
[2023-05-28] MEDS: furosemide 10 MG/1 ML 10ml inj IV ONE (22:45)
[2023-05-28 23:21] VITALS: PULSE 111; RESP 20; O2SAT 97
[2023-05-29] VITALS (12 sets, daily range): BP systolic 120–143; BP diastolic 51–75; PULSE 71–96; RESP 14–20; TEMP 97.4–98.2; O2SAT 95–97
[2023-05-29] MEDS ORDERED: acetaminophen 325mg tablet PO PRN (00:25)
[2023-05-29] MEDS ORDERED: magnesium hydroxide 30ml (MOM) UD suspension PO PRN (00:25)
[2023-05-29] MEDS ORDERED: magnesium 4gm in 100ml NS 100 ML IV PRN (00:25)
[2023-05-29] MEDS ORDERED: potassium Cl 40MEQ/1/2NS 520ml 520 ML IV PRN (00:25)
[2023-05-29] MEDS ORDERED: potassium Cl 20 mEq SR tablet PO PRN ×2 (00:25)
[2023-05-29] MEDS ORDERED: magnesium Cl slow-release 64mg tablet PO PRN (00:25)
[2023-05-29] MEDS ORDERED: ipratropium/albuterol 3ml nebule NEB PRN (00:30)
[2023-05-29 00:42] LABS: BILIRUBIN,URINE NEGATIVE (Neg); CLARITY,URINE CLEAR (Clear); COLOR,URINE YELLOW (Yellow); GLUCOSE, URINE NEGATIVE (Neg); KETONES,URINE NEGATIVE (Neg); LEUKOCYTE ESTERASE ,URINE TRACE (Neg); NITRITES, URINE NEGATIVE (Neg); OCCULT BLOOD,URINE TRACE-INTACT (Neg); PROTEIN,URINE TRACE mg/dl (Neg); UROBILINOGEN,URINE 0.2 E.U/dL (0.2-1.0)
[2023-05-29 00:44] LABS: UA COLLECTION TYPE NON-SPECIFIED
[2023-05-29 00:48] LABS: BACTERIA,URINE FEW /HPF (Neg); MUCUS STRANDS NONE SEEN /LPF (Neg); RBC,URINE 0-2 /HPF (0-2); SQUAMOUS EPITHELIAL CELL,UR FEW /LPF (FEW); TRANSITIONAL EPI CELLS,URINE FEW /HPF; WBC,URINE 0-4 /HPF (0-4)
[2023-05-29 01:02] LABS: PRO BRAIN NATRIURETIC PEPTIDE 2933 PG/ML (0-450)
[2023-05-29] MEDS: aspirin 81mg tab.chew PO ONE (01:27)
[2023-05-29] MEDS: vancomycin/NS 1 GM ADD-VANTAGE 250 ML IV ONE (01:29)
[2023-05-29] MEDS ORDERED: vancomycin/NS 1 GM ADD-VANTAGE 250 ML IV ONE (02:45)
[2023-05-29] MEDS: VANCOMYCIN 750MG IV in NS 250 ML IV ONE (03:12)
[2023-05-29] MEDS ORDERED: OMEPRAZOLE PO (04:20)
[2023-05-29] MEDS ORDERED: SENN-267 PO (04:20)
[2023-05-29] MEDS ORDERED: MULT-444 PO (04:20)
[2023-05-29] MEDS ORDERED: TRAM50TA2 PO (04:20)
[2023-05-29] MEDS ORDERED: DOXY75TA15 PO (04:20)
[2023-05-29] MEDS ORDERED: ACET-1025 PO (04:20)
[2023-05-29] MEDS ORDERED: DOCU-148 PO (04:20)
[2023-05-29] MEDS ORDERED: prednisone 20 mg PO (04:20)
[2023-05-29] MEDS ORDERED: [UNRECOGNIZED DRUG - CODE] PO (04:20)
[2023-05-29] MEDS ORDERED: AMLO2.5T2 PO (04:20)
[2023-05-29] MEDS ORDERED: FERR325T28 PO (04:20)
[2023-05-29] MEDS ORDERED: butalbital/acetaminophen/caffeine (Fioricet) tablet PO PRN (04:45)
[2023-05-29] MEDS: traMADol 50MG tablet PO SCH (05:16)
[2023-05-29] MEDS ORDERED: VANCOMYCIN 1,500MG inj. 1,500 MG in normal saline 500ml IV soln 300 ML IV SCH (08:00)
[2023-05-29] MEDS ORDERED: piperacillin/tazo 3.375gm/50ml 50 ML IV SCH (08:00)
[2023-05-29] MEDS ORDERED: heparin, porcine 5000 units/ml vial SQ SCH (08:00)
[2023-05-29] MEDS: furosemide 20 MG/2 ML vial IV SCH ×2 (08:00→08:59)
[2023-05-29] MEDS: docusate sod 100mg capsule PO SCH ×2 (08:00→08:59)
[2023-05-29] MEDS ORDERED: aspirin 81mg tab.chew PO SCH (08:30)
[2023-05-29] MEDS: levoTHYROXINE 75mcg tablet PO SCH (08:56)
[2023-05-29] MEDS: sertraline 50mg tablet PO SCH (08:58)
[2023-05-29] MEDS: amLODIPine 5mg tablet PO SCH (08:58)
[2023-05-29] MEDS: acetaminophen 325mg tablet PO SCH (08:58)
[2023-05-29] MEDS: MULTIVIT-MIN/FERROUS GLUCONATE 9 MG/15 ML LIQUID PO SCH (08:59)
[2023-05-29] MEDS: ferrous sulfate 325mg tablet PO SCH (08:59)
[2023-05-29] MEDS: sennosides/docusate sodium tablet PO SCH (08:59)
[2023-05-29] MEDS: pantoprazole 40 MG vial IV SCH (08:59)
[2023-05-29] MEDS: metroNIDAZOLE-Flagyl 500mg/NS 100 ML IV SCH (09:00)
[2023-05-29] MEDS: levoFLOXACIN-Levaquin 750MG/D5 150 ML IV SCH (09:00)
[2023-05-29] MEDS: methylPREDNISolone sod succ 125mg/2ml vial IV SCH (09:00)
[2023-05-29] MEDS: heparin, porcine 5000 units/ml vial SQ SCH (09:00)
[2023-05-29] MEDS: mag hydrox/Alum hydrox/simeth 30ml oral suspension PO PRN (10:05)
[2023-05-29] MEDS: codeine/butalbital/acetaminophen/caffeine capsule PO ONE (16:26)
[2023-05-29] MEDS: clonazePAM 0.5mg tablet PO PRN (20:07)
[2023-05-29] MEDS: ondansetron/PF 4mg/2ml inj IV PRN (20:09)
[2023-05-30] MEDS ORDERED: VANCOMYCIN 750MG IV in NS 250 ML IV SCH (01:00)
[2023-05-30 02:00] VITALS: BP 115/45; PULSE 72; RESP 16; TEMP 97.1; O2SAT 94
[2023-05-30 07:52] LABS: BASOPHILS % (AUTO) 0.2 % (0-1); EOSINOPHILS % (AUTO) 0.1 % (0-6); HEMATOCRIT 38.6 % (35.0-45.0); HEMOGLOBIN 12.5 g/dl (12.0-16.0); LYMPHOCYTES # (AUTO) 0.6 X10'3 (1.1-4.8); MEAN CORPUSCULAR HGB CONC 32.3 g/dL (33.0-36.5); MEAN CORPUSCULAR VOLUME 86.9 FL (78-98); MONOCYTES # (AUTO) 0.9 X10'3 (0-0.9); MONOCYTES % (AUTO) 8.4 % (2-12); NEUTROPHILS # (AUTO) 9.2 X10'3 (1.8-7.7); NEUTROPHILS % (AUTO) 85.3 % (42-75); PLATELET COUNT 274 X10'3 (140-440); RED BLOOD COUNT 4.44 X10'6 (4.20-5.60); WHITE BLOOD COUNT 10.8 X10'3 (4.5-11.0)
[2023-05-30 08:00] VITALS: RESP 17; O2SAT 96
[2023-05-30 08:02] LABS: ALANINE AMINOTRANSFERASE 12 U/L (12-78); ALBUMIN/GLOBULIN RATIO 0.6 (1.1-1.5); ALKALINE PHOSPHATASE 82 IU/L (46-116); ANION GAP 6 (8-16); ASPARTATE AMINO TRANSFERASE 20 U/L (10-37); BILIRUBIN,TOTAL 0.4 MG/DL (0.1-1.0); BLOOD UREA NITROGEN 44 MG/DL (7-18); BUN/CREATININE RATIO 28.6 (10.0-20.0); CALCIUM 8.9 MG/DL (8.5-10.1); CHLORIDE 98 MMOL/L (99-107); CREATININE 1.54 MG/DL (0.40-0.90); GLUCOSE 110 MG/DL (70-104); POTASSIUM 3.9 MMOL/L (3.5-5.1); SODIUM 134 MMOL/L (135-145); TOTAL CARBON DIOXIDE 30.1 MMOL/L (24-32); TOTAL PROTEIN 8.1 G/DL (6.4-8.2); eCRCL 23 ML/MIN; eGFR 32 ML/MIN
[2023-05-30] MEDS: codeine/butalbital/acetaminophen/caffeine capsule PO ONE (08:02)
[2023-05-30 15:00] VITALS: BP 114/70; PULSE 77; RESP 15; TEMP 97.8; O2SAT 97
[2023-05-30 15:41] VITALS: PULSE 81; RESP 18; O2SAT 97
[2023-05-31] MEDS ORDERED: levoFLOXACIN-Levaquin 750MG/D5 150 ML IV SCH (08:00)
== END 2023-05-30 16:20 | DRG 189 ==
LOC: ER 20:05 → ED HOLD 05-29 00:29 → EDBEDREQ 05-29 01:26 → PCU 3S 05-29 02:12
PROVIDERS: ADMIT Surgery Surgical Critical Care; ATTEND Internal Medicine
DX: J96.01 Acute respiratory failure with hypoxia (principal); J69.0 Pneumonitis due to inhalation of food and vomit; E43 Unspecified severe protein-calorie malnutrition; N17.0 Acute kidney failure with tubular necrosis; I50.33 Acute on chronic diastolic (congestive) heart failure; I13.0 Hypertensive heart and chronic kidney disease with heart failure and stage 1 through stage 4 chronic kidney disease, or unspecified chronic kidney disease; I24.89 Other forms of acute ischemic heart disease; J43.9 Emphysema, unspecified; E78.00 Pure hypercholesterolemia, unspecified; E03.9 Hypothyroidism, unspecified; J84.10 Pulmonary fibrosis, unspecified; M79.7 Fibromyalgia; F41.9 Anxiety disorder, unspecified; F32.A Depression, unspecified; E87.6 Hypokalemia; E66.9 Obesity, unspecified; D72.828 Other elevated white blood cell count; F03.90 Unspecified dementia, unspecified severity, without behavioral disturbance, psychotic disturbance, mood disturbance, and anxiety; N18.30 Chronic kidney disease, stage 3 unspecified; K21.9 Gastro-esophageal reflux disease without esophagitis; Z90.49 Acquired absence of other specified parts of digestive tract; Z88.6 Allergy status to analgesic agent; Z88.5 Allergy status to narcotic agent; Z88.2 Allergy status to sulfonamides; Z88.8 Allergy status to other drugs, medicaments and biological substances; Z79.899 Other long term (current) drug therapy; Z85.3 Personal history of malignant neoplasm of breast; Z85.038 Personal history of other malignant neoplasm of large intestine; Z68.24 Body mass index [BMI] 24.0-24.9, adult; E83.51 Hypocalcemia
CPT/HCPCS: 36415; 36600; 71045; 80053; 81001; 82803; 83605; 83880; 84145; 84443; 84484; 85008; 85018; 85025; 87040; 87077; 87081; 87088; 87186; 93005; 94660; 94760; 96365; 96375; 97110; 97161; 97530; 99285; A4314; C9113; G0378; J1100; J1644; J1940; J1956; J2405; J2543; J2930; J3370; J3490; J7050; P9047